=== PATIENT | female | born 1965 | race Two or more races ===

== ENCOUNTER 2016-07-29 12:31 | Emergency (ER) | payer OTHER ==
[2016-07-29 13:05] VITALS: BMI 29.6
--- NOTE | 2016-07-29 14:13 | PDOC ---
History of Present Illness - General Chief Complaint: Vaginal Bleeding Stated Complaint: VAG BLEEDING Time Seen by Provider: 07/29/16 14:12 History Source: Patient Exam Limitations: No Limitations - History of Present Illness Travel History: No Initial Comments: 07/29/16 14:43 Patient is here. Per instruction of DAY HABILITATION SUPERVISOR ([place] physician) for evaluation of persistent vaginal bleeding. Had irregular menses/amenorrhea per month of April, reported to DAY HABILITATION SUPERVISOR who performed a uterine biopsy 5 days ago and placed on for just her own 10 mg daily for 30 days. Was told that bleeding would occur for approximately 3 days but that bleeding has been profuse with clots, breakthrough from heavy pads and now some dizziness. This episodes lasting 5 days. States had some cramping yesterday, minimal cramping today. Denies fever, nausea vomiting diarrhea or constipation. Denies any dysuria / pain or burning to void. Timing/Duration: reports: constant, getting worse Quality: reports: mild, moderate, cramping Pain Radiation: reports: no radiation Past History - Travel Traveled outside of the country in the last 30 days: No Close contact w/someone who was outside of country & ill: No - Past Medical History Allergies/Adverse Reactions: Allergies Allergy/AdvReac Type Severity Reaction Status Date / Time No Known Allergies Allergy Verified 07/29/16 12:56 Home Medications: Ambulatory Orders NK [No Known Home Medication] 02/27/16 - Surgical History Abdominal Surgery: Yes - Psycho/Social/Smoking Cessation Hx Suicidal Ideation: No Smoking History: Never smoked Hx Alcohol Use: No Drug/Substance Use Hx: No Review of Systems - Review of Systems Able to Perform ROS?: Yes Is the patient limited Armenian proficient: Yes Constitutional: Yes: Symptoms Reported, See HPI, Loss of Appetite, Malaise. No : Fever HEENTM: Yes: See HPI. No: Symptoms Reported Respiratory: No: Symptoms reported ABD/GI: Yes: Symptoms Reported, See HPI, Nausea. No: Abdominal Distended, Constipated, Diarrhea : No: Symptoms Reported Integumentary: Yes: See HPI, Pallor. No: Symptoms Reported All Other Systems: Reviewed and Negative *Physical Exam - Vital Signs Last Vital Signs Temp Pulse Resp BP Pulse Ox 98.8 F 68 17 121/71 100 07/29/16 12:56 07/29/16 12:56 07/29/16 12:56 07/29/16 12:56 07/29/16 12:56 - Physical Exam General Appearance: Yes: Nourished, Appropriately Dressed, Apparent Distress, Mild Distress, Moderate Distress HEENT: positive: EOMI, MARTÍNEZ, Normal ENT Inspection, TMs Normal, Pharynx Normal Neck: positive: Supple. negative: Tender, Lymphadenopathy (R), Lymphadenopathy (L) Respiratory/Chest: positive: Lungs Clear, Normal Breath Sounds. negative: Chest Tender Cardiovascular: positive: Regular Rhythm Gastrointestinal/Abdominal: positive: Normal Bowel Sounds, Soft (no rebound tenderness or guarding,). negative: Tender, Distended, Guarding, Rebound, Tenderness Extremity: positive: Normal Capillary Refill, Normal Inspection Integumentary: positive: Dry, Warm, Pale. negative: Normal Color Neurologic: positive: admiralty lawyer II-XII NML intact, Fully Oriented, Alert, Normal Mood/ Affect, Normal Response, Motor Strength 07/31 ED Treatment Course - LABORATORY CBC & Chemistry Diagram: 07/29/16 14:55 07/29/16 16:38 Progress Note - Progress Note Progress Note: Dysmenorrhea,left ovarian cyst, nonspecific uterine thickening 1.3cm. No fibroids/ masses noted. Patient updated to reports, states feels much improved and bleeding is almost resolved. Has appointment to follow-up on August 05 PMD as DAY HABILITATION SUPERVISOR is on vacation through the end of this week. *DC/Admit/Observation/Transfer Diagnosis at time of Disposition: Dysmenorrhea - Discharge Dispostion Disposition: HOME Condition at time of disposition: Stable Admit: No - Referrals Referrals: Lukasz Durbin MD [Staff Physician] - - Patient Instructions Printed Discharge Instructions: DI for Abnormal Uterine Bleeding Additional Instructions: Rest, drink lots of fluids: Teas, water, soups Avoid heavy , spicy or fatty foods until symptoms have resolved Continue [id number] medications for symptomatic relief Tylenol or Motrin for fever and pain continue progesterone as directed until completed Followup with private physician in one to 2 days as needed Return to emergency department for worsened symptoms, fevers, dehydration
[2016-07-29] MEDS ORDERED: SODIUM CHLORIDE 0.9% 1000 ML INFUS.BAG IV ONE (14:42)
[2016-07-29 15:14] LABS: URINE APPEARANCE CLOUDY; URINE BILIRUBIN NEGATIVE (NEGATIVE); URINE GLUCOSE (UA) NEGATIVE (NEGATIVE); URINE KETONE NEGATIVE (NEGATIVE); URINE LEUK ESTERASE NEGATIVE (NEGATIVE); URINE NITRITE NEGATIVE (NEGATIVE); URINE UROBILINOGEN NEGATIVE E.U./dl (0.2-1.0)
[2016-07-29 15:22] LABS: INR 1.09 (0.82-1.09)
[2016-07-29 15:24] LABS: URINE BLOOD 3+ (NEGATIVE); URINE PROTEIN 2+ (NEGATIVE)
[2016-07-29 15:25] LABS: URINE COLOR BROWN
[2016-07-29 15:31] LABS: URINE MUCUS RARE; URINE RBC 4109 /hpf (0-3); URINE WBC 9 /hpf (3-5)
[2016-07-29 17:27] LABS: ALBUMIN 4.2 g/dl (3.4-5.0); ANION GAP 11 (8-16); CALCIUM 8.5 mg/dL (8.5-10.1); CO2 25 mmol/L (21-32); COCKROFT - GAULT 153.1445; CREATININE 0.6 mg/dL (0.55-1.02); GLUCOSE,RANDOM 82 mg/dL (74-106); SGPT/ALT 48 U/L (12-78)
[2016-07-29 17:29] LABS: BASOPHIL 0.3 % (0-2.0); EOSINOPHIL 0.5 % (0-4.5); MCH 32.7 pg (25.7-33.7); MCHC 33.4 g/dl (32.0-36.0); MEAN CELL VOLUME 98.1 fl (80-96); MEAN PLT VOLUME 10.1 fl (7.5-11.1); PLATELET COUNT 239 K/MM3 (134-434); RDW 13.1 % (11.6-15.6); WHITE BLOOD COUNT 8.8 K/mm3 (4.0-10.0)
[2016-07-29 17:29] LABS: ALK PHOS 129 U/L (45-117); BILIRUBIN,TOTAL 0.5 mg/dL (0.2-1.0); TOT PROT 8.1 g/dl (6.4-8.2)
[2016-07-29 17:32] LABS: SGOT/AST 38 U/L (15-37)
[2016-07-29 19:11] VITALS: BP 132/68; PULSE 75; TEMP 97.8
== END 2016-07-29 18:50 | disposition home or self-care (01) ==
LOC: JER 12:31
DX: N94.6 Dysmenorrhea, unspecified (principal)
CPT/HCPCS: 36415; 76856-TC; 80053; 81003; 81015; 84703; 85025; 85610; 86850; 86900; 86901; 99283-25

== ENCOUNTER 2018-11-15 15:42 | Emergency (ER) | payer OTHER ==
[2018-11-15 15:46] VITALS: BP 119/59; PULSE 81; TEMP 98.3; BMI 27.0
--- NOTE | 2018-11-15 15:46 | PDOC ---
Rapid Medical Evaluation Chief Complaint: Eye Problem Time Seen by Provider: 11/15/18 15:44 Medical Evaluation: Allergies Allergy/AdvReac Type Severity Reaction Status Date / Time No Known Allergies Allergy Verified 07/29/16 12:56 11/15/18 15:44 HPI: B eye redness and draining x2d PE: B conjunctiva injection ORDERS: Nothing Discharge Disposition - Diagnosis Acute conjunctivitis - Referrals - Patient Instructions - Post Discharge Activity
[2018-11-15] MEDS ORDERED: ERYTHROMYCIN 0.5% OPHTHALMIC OINTMENT 3.5 GM TUBE ONE (17:21)
[2018-11-15] MEDS ORDERED: ERYTHROMYCIN 0.5% OPHTHALMIC OINTMENT 3.5 GM TUBE OU ONE (17:24)
--- NOTE | 2018-11-15 17:28 | PDOC ---
History of Present Illness - General Chief Complaint: Eye Problem Stated Complaint: CONJUNTIVITIS Time Seen by Provider: 11/15/18 15:44 History Source: Patient Exam Limitations: No Limitations Past History - Travel Traveled outside of the country in the last 30 days: No Close contact w/someone who was outside of country & ill: No - Past Medical History Allergies/Adverse Reactions: Allergies Allergy/AdvReac Type Severity Reaction Status Date / Time No Known Allergies Allergy Verified 11/15/18 15:46 Home Medications: Ambulatory Orders Erythromycin 0.5% Eye Ointment [Erythromycin 0.5% Eye Ointment -] 1 applic OU TID #1 tube 11/15/18 COPD: No - Surgical History Abdominal Surgery: Yes - Suicide/Smoking/Psychosocial Hx Smoking History: Never smoked Information on smoking cessation initiated: No Hx Alcohol Use: No Drug/Substance Use Hx: No Substance Use Type: None Review of Systems - Review of Systems Able to Perform ROS?: Yes Comments:: 11/15/18 17:23 CONSTITUTIONAL: Absent: fever, chills, diaphoresis, generalized weakness, malaise, loss of appetite HEENT: Present: B/L eye redness Absent: rhinorrhea, nasal congestion, throat pain, throat swelling, difficulty swallowing, mouth swelling, ear pain, eye pain, visual Changes MUSCULOSKELETAL: Absent: myalgia, arthralgia, joint swelling SKIN: Absent: rash, itching, pallor NEUROLOGIC: Absent: headache, focal weakness or paresthesias, dizziness, unsteady gait, seizure, mental status changes, bladder or bowel incontinence PSYCHIATRIC: Absent: anxiety, depression, suicidal or homicidal ideation, hallucinations. Is the patient limited Liberian proficient: No *Physical Exam - Vital Signs Last Vital Signs Temp Pulse Resp BP Pulse Ox 98.3 F 81 18 119/59 L 99 11/15/18 15:44 11/15/18 15:44 11/15/18 15:44 11/15/18 15:44 11/15/18 15:44 - Physical Exam Comments: 11/15/18 17:24 GENERAL: The patient is awake, alert, and fully oriented, in no acute distress. HEAD: Normal with no signs of trauma. EYES: Pupils equal, round and reactive to light, extraocular movements intact, sclera anicteric, conjunctiva injected b/l. EXTREMITIES: Normal range of motion, no edema. NEUROLOGICAL: Normal speech, normal gait. PSYCH: Normal mood, normal affect. SKIN: Warm, Dry, normal turgor, no rashes or lesions noted. Medical Decision Making - Medical Decision Making 11/15/18 17:25 the patient is a 53-year-old female who presents to the ER with 4 days of bilateral eye redness. She states that her grandchild at home has similar symptoms. She notes she has had yellow discharge and that her eyes are very itchy. Denies visual changes, fever, double vision A/P: Conjunctivitis On exam patient with injected conjunctiva bilaterally Patient states she has been taking tobramycin drops however she states that the burning and itching are worse after using them. We will switch to erythromycin ointment Discharge home with ophthalmology follow-up I discussed the physical exam findings, ancillary test results and final diagnoses with the patient. I answered all of the patient's questions. The patient was satisfied with the care received and felt comfortable with the discharge plan and treatment plan. The Patient agrees to follow up with the primary care physician/specialist within 24-72 hours. Return precautions were given. *DC/Admit/Observation/Transfer Diagnosis at time of Disposition: Acute conjunctivitis Qualifiers: Acute conjunctivitis type: unspecified Laterality: bilateral Qualified Code(s) : H10.33 - Unspecified acute conjunctivitis, bilateral - Discharge Dispostion Disposition: HOME Condition at time of disposition: Stable Decision to Admit order: No - Referrals Referrals: Moncho Chow MD [Staff Physician] - - Patient Instructions Printed Discharge Instructions: DI for Conjunctivitis Additional Instructions: You have conjunctivitis. This is an eye infection. Please use erythromycin ointment twice a day to the affected eye for one week. Please wash her hands frequently Do not wear contact lenses until your infection clears Follow up with ophthalmology if her symptoms do not improve within a week. Return to the ER for visual changes, blurry vision, or any new or worsening symptoms. Tienes conjuntivitis. [place] es agueda infeccin ocular. Por favor, use un [place] mento de eritromicina dos veces al da en el tanisha afectado christy agueda semana. Por favor, lvese las arash con frecuencia No use lentes de contacto hasta que la infeccin se aclare Seguimiento con oftalmologa si jenna sntomas no mejoran dentro de agueda semana. Regrese a urgencias para cambios visuales, visin borrosa o cualquier sntoma nuevo o que empeore. - Post Discharge Activity
== END 2018-11-15 17:31 | disposition home or self-care (01) ==
LOC: JERFT 15:42
DX: H10.33 Unspecified acute conjunctivitis, bilateral (principal)
CPT/HCPCS: 99281-25

== ENCOUNTER 2018-11-21 18:16 | Emergency (ER) | payer OTHER ==
--- NOTE | 2018-11-21 18:23 | PDOC ---
Rapid Medical Evaluation Time Seen by Provider: 11/21/18 18:19 Medical Evaluation: Allergies Allergy/AdvReac Type Severity Reaction Status Date / Time No Known Allergies Allergy Verified 11/15/18 15:46 11/21/18 18:19 This patient had a brief in-person evaluation in triage cc: bilateral eye irritation 12 days treated for conjunctivitis, complaining of eye pain today HPI: HEENT: bilateral sclera ejection, + yellow drainage noted inner canthus, + erythematous conjunctiva bilaterally even and unlabored breathing orders: This patient will proceed to ED for further evaluation. Discharge Disposition - Diagnosis Eye infection - Referrals - Patient Instructions - Post Discharge Activity
[2018-11-21 18:29] VITALS: BP 110/53; PULSE 79; TEMP 97.9; BMI 25.8
--- NOTE | 2018-11-21 19:03 | PDOC ---
History of Present Illness - General Chief Complaint: Eye Problem Stated Complaint: POSSIBLE CONJUNTIVITIS Time Seen by Provider: 11/21/18 18:19 - History of Present Illness Initial Comments: 11/21/18 19:05 53-year-old female without comorbidities presents for evaluation of bilateral eye irritation. Her irritation started today about noon she was treated in the past with tobramycin for conjunctivitis she was unable to tolerate those eyedrops so she was switched to erythromycin eye ointment still unable to tolerate those drops she comes in for worsening symptoms. Past History - Past Medical History Allergies/Adverse Reactions: Allergies Allergy/AdvReac Type Severity Reaction Status Date / Time No Known Allergies Allergy Verified 11/21/18 18:23 Home Medications: Ambulatory Orders Erythromycin 0.5% Eye Ointment [Erythromycin 0.5% Eye Ointment -] 1 applic OU TID #1 tube 11/15/18 Ciprofloxacin 0.3% Eye Drops [Ciloxan 0.3% Eye Drops -] 1 drop OU Q2H #1 bottle 11/21/18 Olopatadine HCl [Pataday] 1 drop OU DAILY #1 bottle 11/21/18 COPD: No - Surgical History Abdominal Surgery: Yes - Suicide/Smoking/Psychosocial Hx Smoking History: Never smoked Information on smoking cessation initiated: No Hx Alcohol Use: No Drug/Substance Use Hx: No Substance Use Type: None Review of Systems - Review of Systems HEENTM: Yes: See HPI, Tearing *Physical Exam - Vital Signs Last Vital Signs Temp Pulse Resp BP Pulse Ox 97.9 F 79 19 110/53 L 100 11/21/18 18:20 11/21/18 18:20 11/21/18 18:20 11/21/18 18:20 11/21/18 18:20 - Physical Exam Comments: 11/21/18 19:04 Bilateral conjunctiva injection and erythema with green crusting on the medial aspects of the lashes Medical Decision Making - Medical Decision Making 11/21/18 18:56 53-year-old female with worsening conjunctivitis she was on tobramycin which irritated her her eye indication was sipped switched to erythromycin ointment which further here irritated her as of noon today she comes in with increasing irritation bilateral eye redness photophobia and drainage I have discontinued all prior medications and place her on Cipro ophthalmic drops and antihistamine drops as well and stress to her the importance of ophthalmology follow-up. Pt seen and examined with ER attending Dr Meyer who is in agreement with the plan *DC/Admit/Observation/Transfer Diagnosis at time of Disposition: Eye infection, Acute conjunctivitis - Discharge Dispostion Disposition: HOME Condition at time of disposition: Stable Decision to Admit order: No - Prescriptions Prescriptions: Ciprofloxacin 0.3% Eye Drops [Ciloxan 0.3% Eye Drops -] 1 drop OU Q2H #1 bottle - Referrals Referrals: Fred Ford [Non Staff, Medical] - Sky Benjamin [Non Staff, Medical] - Rolf Monge [Staff Physician] - Lilly Vela MD [Staff Physician] - Dat Rogers MD [Staff Physician] - Dat Rogers MD [Staff Physician] - Sahra Beck MD [Non Staff, Medical] - Aric Sanders MD [Staff Physician] - Maria L Gipson MD [Staff Physician] - Sky Nicole MD [Non Staff, Medical] - Aristeo Park MD, MD [Non Staff, Medical] - - Patient Instructions Printed Discharge Instructions: How to Instill Eye Drops Additional Instructions: You must follow-up with ophthalmology without fail in the next 1-2 days return to the emergency room for worsening symptoms. Discontinue all eye drops except for a few were prescribed today - Post Discharge Activity
== END 2018-11-21 19:20 | disposition home or self-care (01) ==
LOC: JER 18:16 → JERFT 18:16
DX: H10.33 Unspecified acute conjunctivitis, bilateral (principal)
CPT/HCPCS: 99281-25

== ENCOUNTER 2021-11-05 17:04 | Emergency (ER) | payer OTHER ==
[2021-11-05 17:09] VITALS: BP 104/68; PULSE 67; RESP 18; TEMP 98; BMI 27.2
[2021-11-05 19:00] LABS: EPI CELLS >36 /uL (0-25.1); HYALINE CASTS 4 /uL (0-3.1); PH,URINE 5.5 (5.0-8.0); URINE APPEARANCE CLOUDY; URINE BACTERIA 712 /uL (0-1359); URINE BILIRUBIN NEGATIVE (NEGATIVE); URINE COLOR YELLOW; URINE GLUCOSE (UA) NEGATIVE (NEGATIVE); URINE KETONE TRACE (NEGATIVE); URINE LEUK ESTERASE 1+ (NEGATIVE); URINE NITRITE NEGATIVE (NEGATIVE); URINE PROTEIN NEGATIVE (NEGATIVE); URINE RBC 21 /uL (0-23.9); URINE WBC 197 /uL (0-25.8)
== END 2021-11-05 19:45 | disposition home or self-care (01) ==
LOC: JERFT 17:04
DX: S60.221A Contusion of right hand, initial encounter (principal); N30.00 Acute cystitis without hematuria
CPT/HCPCS: 73130-TC-RT-FY; 81003; 87086; 99284-25

== ENCOUNTER 2022-06-23 10:58 | Emergency (ER) | payer SELFPAY ==
[2022-06-23 11:04] VITALS: BP 129/61; PULSE 71; RESP 18; TEMP 98.5; BMI 25.5
[2022-06-23] MEDS ORDERED: IBUPROFEN 600 MG TABLET (FP) PO ONE ×2 (11:51→12:11)
[2022-06-23] MEDS ORDERED: ONDANSETRON 4 MG TABLET PO ONE (11:51)
[2022-06-23] MEDS ORDERED: ACETAMINOPHEN 500 MG TABLET (FP) PO ONE (11:51)
[2022-06-23] MEDS ORDERED: ACETAMINOPHEN 500 MG TABLET (FP) ONE (12:11)
[2022-06-23] MEDS ORDERED: ONDANSETRON *ODT* 4 MG TABLET ONE (12:11)
[2022-06-23 12:56] LABS: THROAT:GRP A STREP NOT DETECTED (NOTDETECTED)
== END 2022-06-23 14:29 | disposition home or self-care (01) ==
LOC: JERFT 10:58
DX: A08.4 Viral intestinal infection, unspecified (principal)
CPT/HCPCS: 0241U-QW; 87651; 93005; 93010; 99284-25

== ENCOUNTER 2022-10-28 13:30 | Emergency (ER) | payer OTHER ==
[2022-10-28 13:40] VITALS: BP 122/77; PULSE 57; RESP 18; TEMP 98.2; BMI 26.6
[2022-10-28] MEDS ORDERED: IBUPROFEN 600 MG TABLET (FP) PO ONE ×2 (14:23→14:27)
== END 2022-10-28 15:01 | disposition home or self-care (01) ==
LOC: JERFT 13:30
DX: S90.121A Contusion of right lesser toe(s) without damage to nail, initial encounter (principal); M79.671 Pain in right foot; M79.89 Other specified soft tissue disorders; W20.0XXA Struck by falling object in cave-in, initial encounter; Y93.9 Activity, unspecified; Y92.9 Unspecified place or not applicable
CPT/HCPCS: 73630-TC-RT-FY; 99283-25

== ENCOUNTER 2022-12-15 13:01 | Emergency (ER) | payer OTHER ==
[2022-12-15 13:09] VITALS: RESP 20; TEMP 97.7; BMI 24.3
[2022-12-15 15:34] LABS: BASO % 0.4 % (0-2.0); EOS % 0.5 % (0-4.5); HEMATOCRIT 41.5 % (32.4-45.2); HEMOGLOBIN 13.6 GM/dL (10.7-15.3); LYMPH % 24.3 % (8-40); MCH 31.7 pg (25.7-33.7); MCHC 32.8 g/dl (32.0-36.0); MEAN CELL VOLUME 96.5 fl (80-96); MEAN PLT VOLUME 9.3 fl (7.5-11.1); MONO % 8.2 % (3.8-10.2); NEUT % 66.6 % (42.8-82.8); PLATELET COUNT 211 10^3/uL (134-434); RDW 12.5 % (11.6-15.6)
[2022-12-15 15:42] LABS: INR 1.04 (0.83-1.09); PROTHROMBIN TIME (PATIENT) 12.1 SEC (9.7-13.0)
[2022-12-15 16:09] LABS: POTASSIUM 4.6 mmol/L (3.5-5.1)
[2022-12-15 16:12] LABS: ALBUMIN 3.8 g/dl (3.4-5.0); BLOOD UREA NITROGEN 22.2 mg/dL (7-18); CALCIUM 8.8 mg/dL (8.5-10.1); MAGNESIUM 2.3 mg/dL (1.8-2.4)
[2022-12-15 16:15] LABS: CREATININE 0.9 mg/dL (0.55-1.3)
[2022-12-15 16:16] LABS: BILIRUBIN,TOTAL 0.4 mg/dL (0.2-1); TOT PROT 7.5 g/dl (6.4-8.2)
[2022-12-15 16:20] LABS: N-TERMINAL BNP 193.2 pg/ml (5-125)
[2022-12-15 17:28] VITALS: BP 134/67; PULSE 58
== END 2022-12-15 19:06 | disposition home or self-care (01) ==
LOC: JER 13:01
DX: R00.2 Palpitations (principal); R07.89 Other chest pain
CPT/HCPCS: 36415; 71046-TC-FY; 80053; 83690; 83735; 83880; 84484; 85025; 85610; 85730; 86850; 86900; 86901; 93005; 93010; 99285-25

== ENCOUNTER 2023-04-18 22:30 | Emergency (ER) | payer OTHER ==
[2023-04-18 22:37] VITALS: BP 133/70; PULSE 57; RESP 20; TEMP 98; BMI 29.5
[2023-04-18 22:50] LABS: EPI CELLS 30 /uL (0-25.1); HYALINE CASTS 3 /uL (0-3.1); PH,URINE 5.5 (5.0-8.0); URINE APPEARANCE CLOUDY; URINE BACTERIA 34 /uL (0-1359); URINE BILIRUBIN NEGATIVE (NEGATIVE); URINE COLOR YELLOW; URINE GLUCOSE (UA) NEGATIVE (NEGATIVE); URINE KETONE TRACE (NEGATIVE); URINE LEUK ESTERASE 2+ (NEGATIVE); URINE NITRITE NEGATIVE (NEGATIVE); URINE PROTEIN NEGATIVE (NEGATIVE); URINE RBC 82 /uL (0-23.9); URINE WBC 974 /uL (0-25.8)
== END 2023-04-18 23:20 | disposition home or self-care (01) ==
LOC: JERFT 22:30
DX: R30.0 Dysuria (principal); N30.01 Acute cystitis with hematuria; M54.9 Dorsalgia, unspecified
CPT/HCPCS: 81003; 87086; 99283-25

== ENCOUNTER 2023-06-23 21:31 | Emergency (ER) | payer OTHER ==
[2023-06-23 21:38] VITALS: BP 127/57; PULSE 60; RESP 18; TEMP 98.4; BMI 29.2
[2023-06-23] MEDS ORDERED: KETOROLAC TROMETHAMINE 15 MG/ML VIAL ONE (22:28)
[2023-06-23 22:29] LABS: BASO % 0.2 % (0-2.0); EOS % 1.4 % (0-4.5); HEMATOCRIT 37.2 % (32.4-45.2); HEMOGLOBIN 12.8 GM/dL (10.7-15.3); MCH 33.2 pg (25.7-33.7); MCHC 34.3 g/dl (32.0-36.0); MEAN CELL VOLUME 96.9 fl (80-96); MEAN PLT VOLUME 9.7 fl (7.5-11.1); MONO % 8.3 % (3.8-10.2); NEUT % 65.1 % (42.8-82.8); PLATELET COUNT 206 10^3/uL (134-434); RBC 3.84 M/mm3 (3.60-5.2); RDW 13.3 % (11.6-15.6); WHITE BLOOD COUNT 8.7 K/mm3 (4.0-10.0)
[2023-06-23] MEDS: KETOROLAC TROMETHAMINE 15 MG/ML VIAL IVPUSH ONE (22:32)
[2023-06-23 22:50] LABS: CHLORIDE 108 mmol/L (98-107); SODIUM 139 mmol/L (136-145)
[2023-06-23 22:52] LABS: CALCIUM 8.9 mg/dL (8.5-10.1)
[2023-06-23 22:53] LABS: ALBUMIN 3.6 g/dl (3.4-5.0); BLOOD UREA NITROGEN 21.7 mg/dL (7-18); CO2 27 mmol/L (21-32); GLUCOSE,RANDOM 141 mg/dL (74-106)
[2023-06-23 22:56] LABS: CREATININE 0.8 mg/dL (0.55-1.3); SGOT/AST 54 U/L (15-37); SGPT/ALT 29 U/L (13-61)
[2023-06-23 22:58] LABS: BILIRUBIN,TOTAL 0.3 mg/dL (0.2-1); TOT PROT 7.3 g/dl (6.4-8.2)
[2023-06-23 22:59] LABS: ALK PHOS 104 U/L (45-117)
[2023-06-23] MEDS: SODIUM CHLORIDE 0.9% 500 ML INFUS.BAG IV ONE (23:01)
[2023-06-23 23:07] LABS: ANION GAP 4 mmol/L (4-13); POTASSIUM 6.4 mmol/L (3.5-5.1)
[2023-06-23 23:21] LABS: EPI CELLS 10 /uL (0-25.1); HYALINE CASTS 1 /uL (0-3.1); PH,URINE 5.5 (5.0-8.0); URINE APPEARANCE TURBID; URINE BACTERIA 28 /uL (0-1359); URINE BILIRUBIN NEGATIVE (NEGATIVE); URINE COLOR YELLOW; URINE GLUCOSE (UA) NEGATIVE (NEGATIVE); URINE KETONE TRACE (NEGATIVE); URINE LEUK ESTERASE 3+ (NEGATIVE); URINE NITRITE NEGATIVE (NEGATIVE); URINE PROTEIN 2+ (NEGATIVE); URINE RBC 564 /uL (0-23.9); URINE WBC 5381 /uL (0-25.8)
[2023-06-23] MEDS ORDERED: CEFTRIAXONE 1 GM/50 ML BAG ONE (23:56)
[2023-06-24] MEDS: CEFTRIAXONE 1,000 MG in DEXTROSE 5%-WATER - 50 ML IVPB ONE (00:01)
[2023-06-24 00:05] LABS: POTASSIUM 4.3 mmol/L (3.5-5.1)
[2023-06-24 00:09] LABS: BLOOD UREA NITROGEN 21.8 mg/dL (7-18); CALCIUM 8.8 mg/dL (8.5-10.1)
[2023-06-24 00:13] LABS: CREATININE 0.7 mg/dL (0.55-1.3)
== END 2023-06-24 02:28 | disposition home or self-care (01) ==
LOC: JER 21:31
PROC: 3E03329 Introduction of Other Anti-infective into Peripheral Vein, Percutaneous Approach (ICD-10-PCS; principal; 2023-06-23)
PROC: 3E0333Z Introduction of Anti-inflammatory into Peripheral Vein, Percutaneous Approach (ICD-10-PCS; 2023-06-23)
DX: R30.0 Dysuria (principal); R35.0 Frequency of micturition; M54.50 Low back pain, unspecified; R10.30 Lower abdominal pain, unspecified; R39.15 Urgency of urination; N12 Tubulo-interstitial nephritis, not specified as acute or chronic
CPT/HCPCS: 36415; 74176-TC; 80048; 80053; 81003; 85025; 87086; 93005; 93010; 99285-25

== ENCOUNTER 2023-09-17 10:00 | Emergency (ER) | payer OTHER ==
[2023-09-17 10:09] VITALS: RESP 18; BMI 29.5
[2023-09-17 11:34] LABS: BASO % 0.4 % (0-2.0); EOS % 1.6 % (0-4.5); HEMATOCRIT 41.4 % (32.4-45.2); HEMOGLOBIN 13.8 GM/dL (10.7-15.3); MCH 32.2 pg (25.7-33.7); MCHC 33.3 g/dl (32.0-36.0); MEAN CELL VOLUME 96.7 fl (80-96); MEAN PLT VOLUME 9.2 fl (7.5-11.1); MONO % 8.9 % (3.8-10.2); NEUT % 49.1 % (42.8-82.8); PLATELET COUNT 186 10^3/uL (134-434); RBC 4.29 M/mm3 (3.60-5.2); RDW 12.9 % (11.6-15.6); WHITE BLOOD COUNT 4.7 K/mm3 (4.0-10.0)
[2023-09-17 11:53] LABS: POTASSIUM 4.3 mmol/L (3.5-5.1)
[2023-09-17 11:57] LABS: ALBUMIN 4.1 g/dl (3.4-5.0); BLOOD UREA NITROGEN 23.3 mg/dL (7-18); CALCIUM 9.2 mg/dL (8.5-10.1)
[2023-09-17 12:01] LABS: CREATININE 0.8 mg/dL (0.55-1.3)
[2023-09-17 12:02] LABS: BILIRUBIN,TOTAL 1.2 mg/dL (0.2-1); TOT PROT 7.5 g/dl (6.4-8.2)
[2023-09-17 12:23] LABS: EPI CELLS 6 /uL (0-25.1); HYALINE CASTS 0 /uL (0-3.1); PH,URINE 6.5 (5.0-8.0); URINE APPEARANCE CLEAR; URINE BACTERIA 135 /uL (0-1359); URINE BILIRUBIN NEGATIVE (NEGATIVE); URINE COLOR YELLOW; URINE GLUCOSE (UA) NEGATIVE (NEGATIVE); URINE KETONE NEGATIVE (NEGATIVE); URINE LEUK ESTERASE TRACE (NEGATIVE); URINE NITRITE NEGATIVE (NEGATIVE); URINE PROTEIN NEGATIVE (NEGATIVE); URINE RBC 13 /uL (0-23.9); URINE UROBILINOGEN 0.2 mg/dL (0.2-1.0); URINE WBC 14 /uL (0-25.8)
[2023-09-17] MEDS ORDERED: ACETAMINOPHEN INJECTION 100 ML IVPB ONE (13:02)
[2023-09-17] MEDS: ACETAMINOPHEN 1000 MG/100 ML BAG IVPB ONE (13:12)
[2023-09-17 16:44] VITALS: BP 119/59; PULSE 65; TEMP 98.4
== END 2023-09-17 16:45 | disposition home or self-care (01) ==
LOC: JER 10:00
PROC: 3E033NZ Introduction of Analgesics, Hypnotics, Sedatives into Peripheral Vein, Percutaneous Approach (ICD-10-PCS; principal; 2023-09-17)
DX: N39.0 Urinary tract infection, site not specified (principal); R30.0 Dysuria; R10.9 Unspecified abdominal pain; R00.2 Palpitations
CPT/HCPCS: 36415; 71046-TC-FY; 74176-TC; 80053; 81003; 84443; 84484; 85025; 87086; 87186; 93005; 93010; 99285-25; J0131